=== PATIENT | male | born 1950 | race Two or more races ===

== ENCOUNTER 2016-09-21 12:03 | Inpatient (IN) | payer MEDICAID ==
[~2016-09-21] VITALS: Ht 162.6 cm; Wt 84.0 kg
[2016-09-21 13:17] LABS: Basophils # (auto) 0 uL; Eosinophils # (auto) 0 uL; Hematocrit 44.4 % (41.0-53.0); Hemoglobin 14.9 g/dL (13.5-17.5); Lymphocytes # (auto) 0.6 uL; Lymphocytes % (auto) 4.9 % (10.0-50.0); Mean Corpuscular Hemoglobin 30.6 pg (28.0-32.0); Mean Corpuscular Hgb Conc. 33.5 g/dL (32.0-36.0); Mean Corpuscular Volume 91.5 fL (80.0-100.0); Mean Platelet Volume 7.4 fL (7.4-10.4); Monocytes # (auto) 0.6 uL; Monocytes % (auto) 5.5 % (0.0-12.0); Neutrophils # (auto) 10.3 uL; Neutrophils % (auto) 89.6 % (37.0-80.0); Platelet Count (auto) 306 10^3/uL (140-450); Red Cell Distribution Width 13.8 % (11.6-16.0); White Blood Cell 11.5 10^3/uL (4.4-10.8)
[2016-09-21 13:37] LABS: Albumin 3.5 g/dL (3.4-5.0); Anion Gap 13 (5-15); Aspartate Aminotransferase 32 U/L (15-37); BUN/Creatinine Ratio 14.9; Blood Urea Nitrogen 14 mg/dL (7-18); Calcium 7.7 mg/dL (8.5-10.1); Carbon Dioxide 22 mmol/L (21-32); Chloride 107 mmol/L (98-107); GFR African American 103 mL/min; GFR Non-African American 85 mL/min; Glucose 113 mg/dL (74-106); Magnesium 2.5 mg/dL (1.6-2.6); Potassium 3.6 mmol/L (3.5-5.1); Sodium 142 mmol/L (136-145)
[2016-09-21 13:42] LABS: Alkaline Phosphatase 62 U/L (45-117); Bilirubin, Total 0.3 mg/dL (0.2-1.0); Total Protein 7.6 g/dL (6.4-8.2)
[2016-09-21] MEDS ORDERED: SODIUM CHLORIDE 0.9% 1,000 ML IV ONE ×3 (15:24→16:19)
[2016-09-21] MEDS ORDERED: LEVOFLOXACIN 500 MG TAB PO ONE (15:30)
[2016-09-21] MEDS ORDERED: IPRATROPIUM BROM 0.5 MG/2.5ML INH SOL NEB ONE (15:30)
[2016-09-21] MEDS ORDERED: ALBUTEROL SULF 2.5 MG/0.5ML(0.5%) NEB SOLN NEB ONE (15:30)
[2016-09-21] MEDS ORDERED: methylPREDNISolone SOD SUCC 125 MG/2 ML VL IV ONE (15:30)
[2016-09-21 16:11] LABS: Lactic Acid 2.1 mmol/L (0.4-2.0)
[2016-09-21] MEDS ORDERED: SODIUM CHLORIDE 0.9% 250 ML IV ONE (16:19)
[2016-09-21] MEDS ORDERED: cefTRIAXone 1GM/50ML D5W 50 ML IV ONE (16:30)
[2016-09-21 16:44] LABS: REFLEX LACTIC ACID YES OR NO YES
[2016-09-21 18:39] LABS: REFLEX LACTIC ACID YES OR NO YES
[2016-09-21] MEDS ORDERED: ONDANSETRON HCL 4 MG/2 ML VIAL IV PRN (22:15)
[2016-09-21 23:25] VITALS: BP 149/85
[2016-09-21 23:36] VITALS: BP 149/85
[2016-09-22] MEDS ORDERED: ALBU1AER4 IN (01:48)
[2016-09-22] MEDS ORDERED: BECL0.07 INH (01:48)
[2016-09-22] MEDS ORDERED: IPRIH INH (01:48)
[2016-09-22] MEDS: SODIUM CHLORIDE 0.9% 1,000 ML IV SCH ×4 (05:16→18:41)
[2016-09-22 05:23] VITALS: BP 123/74
[2016-09-22 06:39] LABS: Basophils # (auto) 0 uL; Eosinophils # (auto) 0 uL; Hematocrit 40.3 % (41.0-53.0); Hemoglobin 13.4 g/dL (13.5-17.5); Lymphocytes # (auto) 0.3 uL; Lymphocytes % (auto) 3.4 % (10.0-50.0); Mean Corpuscular Hemoglobin 30.8 pg (28.0-32.0); Mean Corpuscular Hgb Conc. 33.3 g/dL (32.0-36.0); Mean Corpuscular Volume 92.3 fL (80.0-100.0); Mean Platelet Volume 7.4 fL (7.4-10.4); Monocytes # (auto) 0.4 uL; Monocytes % (auto) 5.2 % (0.0-12.0); Neutrophils # (auto) 7.4 uL; Neutrophils % (auto) 91.4 % (37.0-80.0); Platelet Count (auto) 244 10^3/uL (140-450); Red Cell Distribution Width 13.7 % (11.6-16.0); White Blood Cell 8.1 10^3/uL (4.4-10.8)
[2016-09-22 07:02] LABS: Calcium 7.3 mg/dL (8.5-10.1); Potassium 3.8 mmol/L (3.5-5.1)
[2016-09-22 07:08] LABS: BUN/Creatinine Ratio 17.1; Bilirubin, Total 0.2 mg/dL (0.2-1.0); Total Protein 6.4 g/dL (6.4-8.2)
[2016-09-22] MEDS: IPRATROPIUM BROM 0.5 MG/2.5ML INH SOL NEB SCH ×5 (07:36→22:35)
[2016-09-22] MEDS: ALBUTEROL SULF 2.5 MG/0.5ML(0.5%) NEB SOLN NEB SCH ×3 (07:36→14:01)
[2016-09-22 09:00] VITALS: BP 149/86
[2016-09-22] MEDS: cefTRIAXone 1GM/50ML D5W 50 ML IV SCH (09:31)
[2016-09-22] MEDS: LEVOFLOXACIN 500MG 100 ML IV SCH (10:00)
[2016-09-22] MEDS ORDERED: methylPREDNISolone SOD SUCC 40 MG/ML VL IV SCH (10:00)
[2016-09-22 11:09] VITALS: BP 123/74
[2016-09-22 13:00] VITALS: BP 154/85
[2016-09-22 17:00] VITALS: BP 158/84
[2016-09-22] MEDS ORDERED: methylPREDNISolone SOD SUCC 125 MG/2 ML VL IV ONE ×2 (18:15→19:00)
[2016-09-22] MEDS: ALBUTEROL SULF 2.5 MG/0.5ML(0.5%) NEB SOLN NEB PRN (18:30)
[2016-09-22 22:00] VITALS: BP 161/92
[2016-09-22] MEDS: FAMOTIDINE 20 MG TAB PO SCH (22:11)
[2016-09-22] MEDS: methylPREDNISolone SOD SUCC 40 MG/ML VL IV SCH (23:51)
[2016-09-23] MEDS: IPRATROPIUM BROM 0.5 MG/2.5ML INH SOL NEB SCH ×6 (02:18→23:16)
[2016-09-23 05:00] VITALS: BP 157/95
[2016-09-23] MEDS: methylPREDNISolone SOD SUCC 40 MG/ML VL IV SCH ×3 (06:19→17:57)
[2016-09-23] MEDS: SODIUM CHLORIDE 0.9% 1,000 ML IV SCH ×2 (06:19→15:19)
[2016-09-23 07:33] VITALS: BP 158/92
[2016-09-23] MEDS: cefTRIAXone 1GM/50ML D5W 50 ML IV SCH (08:47)
[2016-09-23] MEDS: LEVOFLOXACIN 500MG 100 ML IV SCH (11:11)
[2016-09-23] MEDS: FAMOTIDINE 20 MG TAB PO SCH ×2 (11:11→21:28)
[2016-09-23 11:54] VITALS: BP 158/86
[2016-09-23 16:30] VITALS: BP 139/72
[2016-09-23 22:00] VITALS: BP 148/79
[2016-09-23] MEDS: BUDESONIDE (INHALATION) 0.5 MG/2 ML NEB NEB SCH (23:16)
[2016-09-24] MEDS: methylPREDNISolone SOD SUCC 40 MG/ML VL IV SCH ×4 (00:17→18:24)
[2016-09-24] MEDS: IPRATROPIUM BROM 0.5 MG/2.5ML INH SOL NEB SCH ×6 (02:56→23:00)
[2016-09-24] MEDS: SODIUM CHLORIDE 0.9% 1,000 ML IV SCH ×3 (04:57→22:47)
[2016-09-24 05:00] VITALS: BP 155/106
[2016-09-24 06:25] VITALS: BP 145/75
[2016-09-24 07:32] LABS: Basophils # (auto) 0 uL; Eosinophils # (auto) 0 uL; Hematocrit 41.2 % (41.0-53.0); Hemoglobin 13.7 g/dL (13.5-17.5); Lymphocytes # (auto) 0.3 uL; Lymphocytes % (auto) 3.5 % (10.0-50.0); Mean Corpuscular Hemoglobin 30.4 pg (28.0-32.0); Mean Corpuscular Hgb Conc. 33.2 g/dL (32.0-36.0); Mean Corpuscular Volume 91.6 fL (80.0-100.0); Mean Platelet Volume 7.4 fL (7.4-10.4); Monocytes # (auto) 0.2 uL; Monocytes % (auto) 2.3 % (0.0-12.0); Neutrophils # (auto) 9.1 uL; Neutrophils % (auto) 94.2 % (37.0-80.0); Platelet Count (auto) 244 10^3/uL (140-450); Red Cell Distribution Width 13.6 % (11.6-16.0); White Blood Cell 9.7 10^3/uL (4.4-10.8)
[2016-09-24 07:48] LABS: Potassium 3.8 mmol/L (3.5-5.1)
[2016-09-24 07:55] LABS: BUN/Creatinine Ratio 26.4
[2016-09-24 08:30] VITALS: BP 141/85
[2016-09-24] MEDS: cefTRIAXone 1GM/50ML D5W 50 ML IV SCH (09:32)
[2016-09-24] MEDS: LEVOFLOXACIN 500MG 100 ML IV SCH (09:32)
[2016-09-24] MEDS: FAMOTIDINE 20 MG TAB PO SCH ×2 (09:33→22:48)
[2016-09-24] MEDS: BUDESONIDE (INHALATION) 0.5 MG/2 ML NEB NEB SCH ×2 (11:05→19:51)
[2016-09-24 13:00] VITALS: BP 128/79
[2016-09-24 17:00] VITALS: BP 135/82
[2016-09-24 22:06] VITALS: BP 138/82
[2016-09-25] MEDS: methylPREDNISolone SOD SUCC 40 MG/ML VL IV SCH ×4 (00:30→18:10)
[2016-09-25 01:32] VITALS: BP 138/82
[2016-09-25] MEDS: IPRATROPIUM BROM 0.5 MG/2.5ML INH SOL NEB SCH ×6 (02:28→22:36)
[2016-09-25] MEDS: SODIUM CHLORIDE 0.9% 1,000 ML IV SCH ×2 (05:24→16:26)
[2016-09-25 06:20] LABS: Basophils # (auto) 0 uL; Eosinophils # (auto) 0 uL; Hemoglobin 13.5 g/dL (13.5-17.5); Lymphocytes # (auto) 0.5 uL; Lymphocytes % (auto) 5.2 % (10.0-50.0); Mean Corpuscular Hemoglobin 30.3 pg (28.0-32.0); Mean Corpuscular Hgb Conc. 33.1 g/dL (32.0-36.0); Mean Corpuscular Volume 91.6 fL (80.0-100.0); Mean Platelet Volume 7.3 fL (7.4-10.4); Monocytes # (auto) 0.6 uL; Monocytes % (auto) 6.4 % (0.0-12.0); Neutrophils % (auto) 88.4 % (37.0-80.0); Platelet Count (auto) 240 10^3/uL (140-450); Red Cell Distribution Width 13.2 % (11.6-16.0); White Blood Cell 9.1 10^3/uL (4.4-10.8)
[2016-09-25] MEDS: ALBUTEROL SULF 2.5 MG/0.5ML(0.5%) NEB SOLN NEB PRN ×3 (06:28→14:41)
[2016-09-25 09:00] VITALS: BP 157/95
[2016-09-25] MEDS: LEVOFLOXACIN 500MG 100 ML IV SCH (10:16)
[2016-09-25] MEDS: FAMOTIDINE 20 MG TAB PO SCH (10:16)
[2016-09-25] MEDS: BUDESONIDE (INHALATION) 0.5 MG/2 ML NEB NEB SCH ×2 (10:25→18:46)
[2016-09-25] MEDS ORDERED: MONTELUKAST SODIUM 10 MG TAB PO ONE (10:30)
[2016-09-25 13:00] VITALS: BP 142/83
[2016-09-25 17:00] VITALS: BP 143/80
[2016-09-25 22:00] VITALS: BP 149/93
[2016-09-26] VITALS (7 sets, daily range): BP systolic 135–158; BP diastolic 69–90
[2016-09-26] MEDS: FAMOTIDINE 20 MG TAB PO SCH ×3 (00:03→21:38)
[2016-09-26] MEDS: methylPREDNISolone SOD SUCC 40 MG/ML VL IV SCH ×5 (00:03→23:40)
[2016-09-26] MEDS: SODIUM CHLORIDE 0.9% 1,000 ML IV SCH ×3 (02:08→21:38)
[2016-09-26] MEDS: IPRATROPIUM BROM 0.5 MG/2.5ML INH SOL NEB SCH ×6 (02:42→22:35)
[2016-09-26] MEDS: BUDESONIDE (INHALATION) 0.5 MG/2 ML NEB NEB SCH ×2 (06:24→19:19)
[2016-09-26] MEDS: LEVOFLOXACIN 500MG 100 ML IV SCH (10:29)
[2016-09-26] MEDS: MONTELUKAST SODIUM 10 MG TAB PO SCH (10:29)
[2016-09-26] MEDS: ALBUTEROL SULF 2.5 MG/0.5ML(0.5%) NEB SOLN NEB PRN (15:16)
[2016-09-27] MEDS: IPRATROPIUM BROM 0.5 MG/2.5ML INH SOL NEB SCH ×4 (02:00→14:28)
[2016-09-27 05:35] VITALS: BP 140/70
[2016-09-27] MEDS: ALBUTEROL SULF 2.5 MG/0.5ML(0.5%) NEB SOLN NEB PRN ×2 (05:48→14:28)
[2016-09-27] MEDS: methylPREDNISolone SOD SUCC 40 MG/ML VL IV SCH ×3 (05:50→17:49)
[2016-09-27 07:42] VITALS: BP 141/88
[2016-09-27] MEDS: SODIUM CHLORIDE 0.9% 1,000 ML IV SCH ×2 (08:08→18:08)
[2016-09-27] MEDS: BUDESONIDE (INHALATION) 0.5 MG/2 ML NEB NEB SCH (10:00)
[2016-09-27] MEDS: FAMOTIDINE 20 MG TAB PO SCH (10:25)
[2016-09-27] MEDS: MONTELUKAST SODIUM 10 MG TAB PO SCH (10:25)
[2016-09-27] MEDS: LEVOFLOXACIN 500MG 100 ML IV SCH (10:26)
[2016-09-27 11:51] VITALS: BP 144/84
[2016-09-27 16:22] VITALS: BP 152/86
[2016-09-27 17:30] VITALS: BP 152/86
== END 2016-09-27 18:38 | disposition home or self-care (01) | DRG 133 ==
LOC: ER 12:13 → CENTRAL 12:14
PROVIDERS: ADMIT Family Medicine; ATTEND Family Medicine
DX: J96.00 Acute respiratory failure, unspecified whether with hypoxia or hypercapnia (principal); J18.9 Pneumonia, unspecified organism; J45.902 Unspecified asthma with status asthmaticus; J44.9 Chronic obstructive pulmonary disease, unspecified; R73.9 Hyperglycemia, unspecified; I70.0 Atherosclerosis of aorta; Z87.891 Personal history of nicotine dependence; J98.11 Atelectasis
CPT/HCPCS: 36415; 71010; 71020; 80048; 80053; 83605; 83735; 84484; 85025; 87040; 93005; 94640; 96361; 96365; J0696; J1956

== ENCOUNTER 2017-04-30 20:42 | Emergency (ER) | payer MEDICAID ==
[~2017-04-30] VITALS: Ht 172.7 cm; Wt 77.1 kg
[~2017-04-30 20:42] MED LIST: ALBU1AER4 IN; BECL0.07 INH; IPRIH INH
[2017-04-30 21:28] LABS: Basophils # (auto) 0.1 uL; Basophils % (auto) 0.7 % (0.0-2.0); Eosinophils # (auto) 0.3 uL; Eosinophils % (auto) 3.6 % (0.0-7.0); Hematocrit 44.6 % (41.0-53.0); Hemoglobin 14.9 g/dL (13.5-17.5); Lymphocytes # (auto) 0.8 uL; Lymphocytes % (auto) 9.5 % (10.0-50.0); Mean Corpuscular Hemoglobin 31.1 pg (28.0-32.0); Mean Corpuscular Hgb Conc. 33.4 g/dL (32.0-36.0); Mean Corpuscular Volume 93.2 fL (80.0-100.0); Mean Platelet Volume 6.6 fL (6.9-10.8); Monocytes # (auto) 0.7 uL; Monocytes % (auto) 8.9 % (0.0-12.0); Neutrophils # (auto) 6.2 uL; Neutrophils % (auto) 77.3 % (37.0-80.0); Platelet Count (auto) 233 10^3/uL (140-450); White Blood Cell 8.1 10^3/uL (4.4-10.8)
[2017-04-30 21:45] LABS: Albumin 3.6 g/dL (3.4-5.0); BUN/Creatinine Ratio 8.3; Bilirubin, Total 0.3 mg/dL (0.2-1.0); Calcium 7.9 mg/dL (8.5-10.1); Potassium 3.5 mmol/L (3.5-5.1); Total Protein 7.6 g/dL (6.4-8.2)
[2017-04-30 23:05] LABS: Urine RBC None Seen /hpf (0 - 3)
[2017-04-30 23:22] LABS: Urine Bilirubin Negative (Negative); Urine Blood Negative /uL (Negative); Urine Color Yellow (Yellow); Urine Glucose Normal (Normal); Urine Ketone Negative (Negative); Urine Mucus FEW (None Seen); Urine Nitrite Negative (Negative); Urine Urobilinogen Normal (Negative); Urine pH 5.5 (5.0-8.0)
[2017-05-01] MEDS ORDERED: DEXAMETHASONE SOD PHOS 10MG/1ML VIAL INJ IV ONE (00:45)
[2017-05-01] MEDS ORDERED: MANNITOL 20% SOLN 100 gm/500ml 250 ML IV ONE (00:45)
[2017-05-01] MEDS ORDERED: THIAMINE HCL 100 MG/ML 2ML VIAL IV ONE (00:45)
[2017-05-01] MEDS ORDERED: PHENYTOIN IV DILANTIN 1,000 MG in SODIUM CHL 0.9% 250 ML IV ONE (00:45)
[2017-05-01] MEDS ORDERED: MANNITOL 20 % (20GM/100ML) 500 ML IV ONE (00:51)
[2017-05-01] MEDS ORDERED: PHENYTOIN SODIUM 50 MG/ML 5ML INJ VIAL IV ONE (00:51)
[2017-05-01 01:29] VITALS: BP 141/96
== END 2017-05-01 01:38 | disposition short-term general hospital (02) ==
LOC: EDBD 20:42 → ER 20:42
DX: S43.401A Unspecified sprain of right shoulder joint, initial encounter (principal); S93.402A Sprain of unspecified ligament of left ankle, initial encounter; S06.5X0A Traumatic subdural hemorrhage without loss of consciousness, initial encounter; G92 Toxic encephalopathy; F10.129 Alcohol abuse with intoxication, unspecified; Y90.6 Blood alcohol level of 120-199 mg/100 ml; Z87.891 Personal history of nicotine dependence; J45.909 Unspecified asthma, uncomplicated; V80.010A Animal-rider injured by fall from or being thrown from horse in noncollision accident, initial encounter; Y93.89 Activity, other specified; Y99.8 Other external cause status; Y92.89 Other specified places as the place of occurrence of the external cause
CPT/HCPCS: 36415; 51702; 70450; 73030; 73600; 80053; 80307; 80320; 81001; 85025; 96365; 96375; 99285; J1100; J1165; J3411; J7050